=== PATIENT | male | born 1970 | race Caucasian/White ===

== ENCOUNTER 2019-05-19 16:31 | Inpatient (IN) | payer OTHER ==
[~2019-05-19] VITALS: Ht 182.9 cm; Wt 121.2 kg
--- NOTE | 2019-05-19 16:44 | NUR ---
DR RAMESH AT BEDSIDE FOR MSE
[2019-05-19 16:52] LABS: BASOPHIL % 0.3 % (0-2); PLATELET COUNT 320 x10^3mcL (130-400); RED CELL DISTRIBUTION WIDTH 13.5 % (11.5-14.5)
--- NOTE | 2019-05-19 16:55 | NUR ---
PT HERE FOR C/O WORSENING PAIN TO LOWER ABD CENTER AREA FOR APPROXIMATELY 3 DAYS. PT STS HE WAS RECENTLY DIAGNOSED WITH DIVERTICULITIS FROM [facility]. PT STS PAIN GOES FROM DULL TO SHARP. PT APPEARS COMFORTABLE AT THIS TIME.
--- NOTE | 2019-05-19 17:06 | NUR ---
CALL LIGHT IN REACH. PT WATCHING TV. PILLOW GIVEN - BLANKET DECLINED
[2019-05-19 17:11] LABS: CALCIUM 9.3 mg/dL (8.5-10.1); CREATININE SERUM 1.4 mg/dL (0.7-1.3)
[2019-05-19 17:15] LABS: ALBUMIN 3.9 g/dL (3.4-5.0); BILIRUBIN TOTAL 0.42 mg/dL (0.20-1.00); TOTAL PROTEIN, SERUM 8.3 g/dL (6.4-8.2)
--- NOTE | 2019-05-19 17:48 | NUR ---
WHEELED TO CT SCAN
--- NOTE | 2019-05-19 18:36 | NUR ---
PT REQUESTED WATER. INFORMED DR RAMESH BUT RESULTS ARE NOT OUT YET. INFORMED PT UNABLE TO HAVE WATER AT THIS TIME.
--- NOTE | 2019-05-19 19:10 | NUR ---
REPORT GIVEN TO RONEN TESFAYE
--- NOTE | 2019-05-19 19:20 | NUR ---
PT SITTING UP IN BED TO POSITION OF COMFORT. PT RATES PAIN A 3/10 AND IS TOLERABLE. NO S/S OF DISTRESS NOTED.
[2019-05-19] MEDS ORDERED: GEMFIBROZIL600 MG PO (20:03)
[2019-05-19] MEDS ORDERED: GOOD SENSE OMEP20 MG (20:04)
[2019-05-19] MEDS ORDERED: VENLAFAXINE25 MG PO (20:04)
[2019-05-19] MEDS ORDERED: WEL75 (20:04)
[2019-05-19 20:10] LABS: MAGNESIUM 2.2 mg/dL (1.8-2.4); PHOSPHOROUS 3.6 mg/dL (2.5-4.9)
[2019-05-19 20:12] LABS: CHOLESTEROL/HDL RATIO 7.5
--- NOTE | 2019-05-19 20:34 | NUR ---
REPORT GIVEN TO ALIS TESFAYE.
--- NOTE | 2019-05-19 20:43 | NUR ---
RECEIVED PT FROM ED VIA WHEELCHAIR, CAME IN DUE TO ABDOMINAL PAIN. AAOX4. DENIES HEADACHE/DIZZINESS. ABLE TO FOLLOW COMMANDS. NO SOB NOTED. DENIES CHEST PAIN/PRESSURE. STATED THAT HE HAS 3/10 ABDOMINAL PAIN DESCRIBED DULL AND GETS SHARP AND WORSE WHEN COUGHING. ABDOMEN IS SOFT. DENIES NAUSEA/VOMITING. BOWEL SOUNDS ACTIVE. LAST BM TODAY. VOIDS. IV SITE ON THE LAC IS PATENT AND INTACT. SIDE RAILS UPX2. CALL LIGHT ON REACH. ENDORSED TO PRIMARY NURSE ALIS FOR CONTINUITY OF CARE
[2019-05-19 21:02] VITALS: BP 158/103
[2019-05-19 21:08] VITALS: Ht 182.9 cm; Wt 121.2 kg
--- NOTE | 2019-05-19 21:20 | NUR ---
RECEIVED PT FROM [facility], ADMITS TO ABD PAIN 12/22 AT THIS TIME. IV TO LAC IN PLACE, DRY, PATENT, INTACT, S/L AT THIS TIME, NO PAIN, REDNESS OR SWELLING WHEN FLUSHED WITH NS. ORIENTED PT TO ROOM AND CALL LIGHT. COMFORT AND SAFETY MEASURES IMPLEMENTED. CALL LIGHT WITHIN REACH. ALL NEEDS ASSESSED AND ATTENDED TO. WILL CONTINUE TO MONITOR
[2019-05-20 06:09] VITALS: BP 147/95
[2019-05-20 06:24] LABS: BASOPHIL % 0.4 % (0-2); PLATELET COUNT 278 x10^3mcL (130-400); RED CELL DISTRIBUTION WIDTH 13.7 % (11.5-14.5)
[2019-05-20 06:57] LABS: CARBON DIOXIDE 26.7 mmol/L (21-32); CREATININE SERUM 1.4 mg/dL (0.7-1.3); MAGNESIUM 2.3 mg/dL (1.8-2.4); PHOSPHOROUS 5.4 mg/dL (2.5-4.9); POTASSIUM SERUM 3.8 mmol/L (3.5-5.1)
--- NOTE | 2019-05-20 07:36 | NUR ---
NO SIGNIFICANT CHANGES TO REPORT, PT COMPLIED WITH NURSING CARE THROUGHOUT THE SHIFT. PT COMPLIED WITH NURSING CARE THROUGHOUT THE SHIFT, SLEPT WELL IN INTERVALS. NO ACUTE DISTRESS OBSERVED AT THIS TIME, PT LAYING IN BED, BREATHING EVEN AND UNLABORED, AROUSABLE TO VERBAL STIMULI. COMFORT AND SAFETY MEASURES MAINTAINED. ALL NEEDS ASSESSED AND ATTENDED TO. CALL LIGHT WITHIN REACH. WILL CONTINUE TO MONITOR AND ENDORSE CARE TO DAY SHIFT NURSE
--- NOTE | 2019-05-20 08:11 | NUR ---
A+OX4, MEDSURG, PULSES MODERATE AND EQUAL DENISSE, PULSES MODERATE AND EQUAL DENISSE, NO EDEMA NOTED, LUNG SOUNDS CTA, TOLERATING RA, BOWEL SOUNDS ACTIVE, VOIDING FREELY, AMBULATORY, SKIN INTACT, IV IN LAC WITH NS @ 75 ML/HR, SITE WNL.
[2019-05-20 09:35] VITALS: BP 144/108
--- NOTE | 2019-05-20 09:36 | NUR ---
PT RESTING IN BED, DENIES ABD PAIN, NO RESPRIATORY DISTRESS NOTED, ASSISTED PT TO MAKE A PHONE CALL, CALL LIGHT WITHIN REACH.
--- NOTE | 2019-05-20 12:12 | NUR ---
PT RESTING IN BED, NO RESPIRATORY DISTRESS NOTED, DENIES PAIN, CALL LIGHT WITHIN REACH.
--- NOTE | 2019-05-20 14:22 | NUR ---
PT RESTING IN BED, NO RESPIRATORY DISTRESS NOTED, DENIES PAIN, CALL LIGHT WITHIN REACH.
--- NOTE | 2019-05-20 14:27 | NUR ---
PT RESTING IN BED, NO RESPIRATORY DISTRESS NOTED, APPEARS TO BE SLEEPING, CALL LIGHT WITHIN REACH.
[2019-05-20 15:50] LABS: microscopic required? NO
--- NOTE | 2019-05-20 15:59 | NUR ---
PT RESTING IN BED, NO RESPIRATORY DISTRESS NOTED, DENIES PAIN, CALL LIGHT WITHIN REACH.
[2019-05-20 16:11] LABS: UA SPECIFIC GRAVITY 1.025 (1.005-1.035); urine erythrocyte NEGATIVE (NEGATIVE)
[2019-05-20 16:20] LABS: AMPHETAMINE QUAL UR NONE DETECTED (See below)
[2019-05-20 16:39] VITALS: BP 141/94
--- NOTE | 2019-05-20 18:56 | NUR ---
PT RESTING IN BED, NO RESPIRATORY DISTRESS NOTED, DENIES PAIN, DENIES NAUSEA, CALL LIGHT WITHIN REACH.
--- NOTE | 2019-05-20 19:20 | NUR ---
RECEIVED PT LAYING IN BED WATCHING TB, NO ACUTE DISTRESS OBSERVED. DENIES PAIN OR DISCOMFORT AT THIS TIME. FULL LIQUID DIET, TOLERATING WELL. ABD ROUND AND SOFT WITH ACTIVE BOWEL SOUNDS, DENIES N/V/D. LAST BM EARLIER TODAY, REGULAR AND FORMED. AA/OX4, ABLE TO MAKE NEEDS KNOWN. MED-SURG, NO TELE, NO CP. PULSES PRESENT AND EQUAL THROUGHOUT, NO EDEMA NOTED. BREATHING ON RA, EVEN AND UNLABORED, NO SOB OR DYSPNEA OBSERVED. FREELY VOIDS URINE WITH BRP. AMBULATORY AND ABLE TO REPOSITION SELF IN BED. IV TO LAC IN PLACE, DRY, PATENT, INTACT, AND INFUSING IVF WELL, NO PAIN, REDNESS OR SWELLING NOTED. COMFORT AND SAFETY MEASURES IN PLACE. ALL NEEDS ASSESSED AND ATTENDED TO. CALL LIGHT WITHIN REACH. WILL CONTINUE TO MONITOR
--- NOTE | 2019-05-20 19:39 | NUR ---
ENDORSED CARE TO ALIS TESFAYE.
[2019-05-20 20:41] VITALS: BP 141/77
--- NOTE | 2019-05-21 05:10 | NUR ---
NO SIGNIFICANT CHANGES TO REPORT, PT COMPLIED WITH NURSING CARE THROUGHOUT THE SHIFT WITH NO ACUTE EVENTS OVERNIGHT. NO ACUTE DISTRESS OBSERVED AT THIS TIME, PT LAYING IN BED, BREATHING EVEN AND UNLABORED. COMFORT AND SAFETY MEASURES MAINTAINED. ALL NEEDS ASSESSED AND ATTENDED TO. CALL LIGHT WITHIN REACH. WILL CONTINUE TO MONITOR AND ENDORSE CARE TO DAY SHIFT NURSE
[2019-05-21 05:40] VITALS: BP 118/87
[2019-05-21 06:10] LABS: BASOPHIL % 0.5 % (0-2); PLATELET COUNT 266 x10^3mcL (130-400); RED CELL DISTRIBUTION WIDTH 13.5 % (11.5-14.5)
[2019-05-21 06:25] LABS: CALCIUM 8.9 mg/dL (8.5-10.1); CARBON DIOXIDE 29.6 mmol/L (21-32); CHLORIDE SERUM 103 mmol/L (98-107); CREATININE SERUM 1.3 mg/dL (0.7-1.3); GFR1 > 60 mL/min; GLUCOSE SERUM 91 mg/dL (74-106); MAGNESIUM 2.2 mg/dL (1.8-2.4); PHOSPHOROUS 4.9 mg/dL (2.5-4.9); POTASSIUM SERUM 3.8 mmol/L (3.5-5.1); SODIUM SERUM 140 mmol/L (136-145)
--- NOTE | 2019-05-21 07:53 | NUR ---
RECIEVED PATIENT SLEEPING QUIETLY AT THIS TIME. PATIENT WOKE FOR BREAKFAST AND HAD A INCIDENT OF VOMITING AND STATES HE HAS A HEADACHE. OFFERED MEDICATION ND HE AT [facility] DID NTO WANT NAUSEA MEDICATION AND NOW DOES. LUNGS ARE CLEAR AND ABDOINE IS DISTENDED AND FIRM. HE HAS SOME TRACE EDEMA TO THE LOWER EXTREMTIES AND STATES HIS LAST BM WAS LAST NIGHT. WILL GIVE THE REMAINDER OF HIS MEDICATION LATER HE PREFERS WITH JUST THROWING UP. GAVE TYLENOL FOR THE HEADACHE. WILL CONTINUE TO MONITOR.
[2019-05-21 09:35] VITALS: BP 114/67
--- NOTE | 2019-05-21 13:55 | NUR ---
ADVISED THE PATIENT FOR NEED FOR STOOL FOR C DIFF TESTING AND ADVISED THE ATIETN BORISU TTHE INDICATION AND CAUSES OF C DIFF. PATIENT UNDERSTANDS THE EDUCATION GIVEN.
--- NOTE | 2019-05-21 16:20 | NUR ---
JERMAINE FALL C DIFF SPECIMEN TO THE LAB AND AWAITING RESULTS .
--- NOTE | 2019-05-21 17:12 | NUR ---
SLEEPY ON AND OFF AND IN NO DISTRESS AT THIS TIME. HAD THE LOOSE BM AND SENT TO LAB FOR C DIFF TESTING.
[2019-05-21 17:30] VITALS: BP 133/90
--- NOTE | 2019-05-21 17:39 | NUR ---
REQUESTED TYLENOL FOR HEADACHE. GAVE INDICATED AND WILL MONITOR RESULTS.
--- NOTE | 2019-05-21 19:45 | NUR ---
PT SITTING UP IN BED WATCHING TV. AA&O X4. NO SOB ON ROOM AIR. NO C/O N/V/ABD PAIN AT THIS TIME. NO DISTRESS NOTED. IV TO LAC, NS INFUSING. SAFETY MEASURES IN PLACE. BED IN LOWEST POSITION SIDE RAILS UP X2. ON CONTACT PRECAUTIONS, (+) C.DIFF. INSTRUCTED PT TO USE THE CALL LIGHT IF ASSISTANCE IS NEEDED. CALL LIGHT WITHIN REACH.
--- NOTE | 2019-05-21 19:58 | NUR ---
NOTIFIED THE RESIDENT OF THE C DIFF RESULTS AND THE MEDICATION RECONCILIATION UPDATE ON HIS ANTIDEPRESSANT. PATIENT ADVISED OF THE INDICATION AND ISOLATION.
[2019-05-21 20:48] VITALS: BP 131/78
--- NOTE | 2019-05-21 23:51 | NUR ---
C/O HEADACHE 03/24. MEDICATED WITH TYLENOL.
--- NOTE | 2019-05-22 00:51 | NUR ---
PT RESTING WITH EYES CLOSED. NO SOB ON ROOM AIR. NO FACIAL GRIMACING. NO DISTRESS NOTED. CALL LIGHT WITHIN REACH. WILL CONTINUE TO MONITOR.
--- NOTE | 2019-05-22 05:15 | NUR ---
PT RESTED AT LONG INTERVALS THROUGHOUT SHIFT. NO SOB ON ROOM AIR. NO RESPIRATORY DISTRESS NOTED. NO C/O PAIN AT THIS TIME. SAFETY MEASURES MAINTAINED. ALL NEEDS ATTENDED TO. CONTACT PRECAUTIONS MAINTAINED. CALL LIGHT WITHIN REACH. WILL CONTINUE TO MONITOR AND ENDORSE CONTINUITY OF CARE TO ONCOMING RN.
[2019-05-22 05:30] VITALS: BP 137/87
--- NOTE | 2019-05-22 05:47 | NUR ---
TYLENOL GIVEN FOR HEADACHE 03/24.
[2019-05-22 06:31] LABS: BASOPHIL % 0.3 % (0-2); PLATELET COUNT 286 x10^3mcL (130-400); RED CELL DISTRIBUTION WIDTH 13.6 % (11.5-14.5)
[2019-05-22 06:49] LABS: CARBON DIOXIDE 29.2 mmol/L (21-32); CREATININE SERUM 1.4 mg/dL (0.7-1.3); MAGNESIUM 2.4 mg/dL (1.8-2.4); PHOSPHOROUS 4.8 mg/dL (2.5-4.9)
--- NOTE | 2019-05-22 06:51 | NUR ---
PT RESTING WITH EYES CLOSED. NO FACIAL GRIMACING. NO DISTRESS NOTED. CALL LIGHT WITHIN REACH.
--- NOTE | 2019-05-22 08:00 | NUR ---
RECEIVED PATIENT IN ISOLATION FOR C DIFF AND TOLERATE THE MEAL THIS AM WELL AND STATES NO BM SINCE LAST NIGHT. CONTINUED ON VANCO ORAL AND ZOSYN AND NO ADVERSE REACTION NOTED. PATIENT HAS BEEN AMBULATORY AND DENIES ANY PAIN AT THIS TIME. VITALS ARE AT 98.2, 75, 18, 137/87, 96%. PATIENT HAS NOTED HIGH CHOLESTEROL AND TRIGLYCERIDES AND AND CLEAR BREATH SOUNDS AND CHEST XRAY IS NEGATIVE. PATIENT HAS TRACE EDEMA TO THE LOWER EXTREMTIES AND HAS HISTORY OF DIVERTICULOSIS AND KNEE SURGERY WELL DEPRESSION. PATIENT TOLERATED THE MORNING MEAL AND IN NO DISTRESS AT THIS TIME. THE URINE UDS ARE NEGATIVE AND PATIENT IS RESTING ON AND OFF BUT INDICATED HE WOULD LIKE TO GO HOME TODAY.
[2019-05-22 09:30] VITALS: BP 150/88
[2019-05-22] MEDS ORDERED: ZES10 PO (11:54)
[2019-05-22] MEDS ORDERED: FLA500 PO (11:55)
[2019-05-22] MEDS ORDERED: CIPROFLOXACIN500 MG PO (11:56)
[2019-05-22] MEDS ORDERED: VANCOCIN125 MG PO ×2 (11:59→12:07)
--- NOTE | 2019-05-22 12:00 | NUR ---
1. Recommend Cardiac diet. 2. High fiber diet education provided to the patient.
--- NOTE | 2019-05-22 12:00 | NUR ---
Initial Nutrition Assessment: 223/B LIZANDRO OLMEDO W IA HR Dx: Diverticulitis PMHx: Diverticulosis, GERD, MDD, Hypercholesterolemia PSHx: Arthroscopy (B/L ACL repairs), Other (Pylorotomy as a baby) Labs: CREAT 1.4H, (05/19) TG 167H, CHOL 232H Meds: G gm Sodium Diet: Morphine, [place], Zofran, Zosyn PO Intake: (05/22) breakfast 100%, (05/21) breakfast full liquid 100% Ht: 182.88 cm (72") Wt: 121 kg (266#) BMI: 36.2 kg/m2 Bed scale: 121.2 kg IBW: 178# (81 kg) %IBW:149 UBW: 120-125# Age: 49/M Food Allergies: NKFA Skin: intact Giovanni: 21 Edema: none GI: Last BM: 05/21 Per H&P, Pt is a 49 yo M with a PMH of Diverticulosis, GERD, MDD, Hypercholesterolemia came with cc of progressively worsening abdominal pain since 4 days. RDN Visit (05/22): Patient was alert and oriented and said that he ate 100% breakfast this morning. Per bed huddles, patient is C.Diff positive but he currently does not have any diarrhea. Patient was given education about high fiber diet and difference between diverticulitis and diverticulosis. FNS received consult for "diverticulitis" on 05/20. Per bed huddles, pt. will be D/C home today. Problem with: N/V/D/C: no Problems with: Chewing/Swallowing: none Current appetite: good Recent wt change: none %wt change: N/A Vitamin/Supplement use: none Special diet at home: Regular Physical activity: none Nutrition education given: [facility] handout on 'High fiber Nutrition Therapy' was provided and difference between diverticulitis and diverticulosis was explained. Food-drug interactions: none Education given: n/a Estimated Nutritional Needs Based on ideal body weight 81 kg Energy: 1307-9312 kcal/d (25-30 kcal/kg) Protein: 81-97 g/d (1.0-1.2 g/kg)- Fluid: 5824-9186 ml/d (1 ml/kcal) or per doctor Nutrition Diagnosis 1. Inadequate fiber intake related to knowledge deficits concerning desirable qualities of fiber as evidenced by diverticulitis/ diverticulosis. Intervention 1. Recommend Cardiac diet. 2. High fiber diet education provided to the patient. Monitor/Evaluate Goal: PO intake at least 75% of estimated needs Monitor: PO intake, Labs, GI function F/U in 7 days as low risk 05/29
--- NOTE | 2019-05-22 12:40 | NUR ---
ORDER FOR DISCHARGE RECIEVED. PATIENT RECEIVED HIS VANCO ORDERED. NO ACUTE DISTRESS AND DOES WANT TO GO HOME TODAY. REMINDED ABOUT INFECTIOUS DIARRHEA AND HOW TO PROTECT THE FAMILY AD LOVED ONES. WILL INCLUDE IN THE DISCHARGE INSTRUCTIONS INDICATED.
[2019-05-22 13:02] VITALS: BP 150/88
--- NOTE | 2019-05-22 14:18 | NUR ---
GAVE PRESCRIPTIONS AND DISCHARGE PAPERWORK TO THE PATIENT AND REMOVED IV. PATIENT DISCHARGE TO HOME WITH ALL BELONGINGS.
== END 2019-05-22 14:16 | disposition home or self-care (01) | DRG 371 ==
LOC: ED 16:31 → MU 19:37
PROVIDERS: Internal Medicine; ADMIT Internal Medicine
DX: A04.72 Enterocolitis due to Clostridium difficile, not specified as recurrent (principal); N17.0 Acute kidney failure with tubular necrosis; K57.32 Diverticulitis of large intestine without perforation or abscess without bleeding; K21.9 Gastro-esophageal reflux disease without esophagitis; I10 Essential (primary) hypertension; E78.00 Pure hypercholesterolemia, unspecified; F17.290 Nicotine dependence, other tobacco product, uncomplicated; F32.9 Major depressive disorder, single episode, unspecified; E66.9 Obesity, unspecified; Z68.36 Body mass index [BMI] 36.0-36.9, adult
CPT/HCPCS: G0378; J1885; J2405; J2543; J7030; Q0092; Q9967

== ENCOUNTER 2019-07-14 11:26 | Emergency (ER) | payer SELFPAY ==
[~2019-07-14] VITALS: Ht 182.9 cm; Wt 122.9 kg
[~2019-07-14 11:26] MED LIST: CIPROFLOXACIN500 MG PO; FLA500 PO; GEMFIBROZIL600 MG PO; GOOD SENSE OMEP20 MG; VANCOCIN125 MG PO; VENLAFAXINE25 MG PO; WEL75; ZES10 PO
[2019-07-14 11:31] VITALS: Ht 182.9 cm; Wt 122.9 kg
[2019-07-14 12:14] VITALS: BP 137/97
== END 2019-07-14 12:14 | disposition home or self-care (01) ==
LOC: ED 11:26
DX: J06.9 Acute upper respiratory infection, unspecified (principal); I10 Essential (primary) hypertension; F32.9 Major depressive disorder, single episode, unspecified; Z76.0 Encounter for issue of repeat prescription